=== PATIENT | male | born 1995 | race African-American/Black ===

== ENCOUNTER 2017-08-14 06:39 | Emergency (ER) | payer MEDICAID ==
[~2017-08-14] VITALS: Ht 165.1 cm; Wt 65.8 kg
[~2017-08-14 06:39] MED LIST: NKM
[2017-08-14 07:06] LABS: APPEARANCE,URINE CLEAR; BILIRUBIN, URINE NEGATIVE (NEGATIVE); GLUCOSE, URINE (UA) NEGATIVE (NEGATIVE); KETONES,URINE 1+ (NEGATIVE); LEUKOCYTE ESTERASE ,URINE 1+ (NEGATIVE); NITRITE,URINE NEGATIVE (NEGATIVE); PH,URINE 6 (4.5-8.0); PROTEIN,URINE 2+ (NEGATIVE); UROBILINOGEN,URINE 4 MG/DL (0.0-1.0)
[2017-08-14 07:13] LABS: BASOPHILS % (AUTO) 1.4 % (0.0-2.0); EOSINOPHILS % (AUTO) 0.8 % (0.0-3.0); HEMOGLOBIN 15.7 G/DL (14.2-18.0); LYMPHOCYTES % (AUTO) 19.7 % (20.0-45.0); MEAN CORPUSCULAR VOLUME 95 FL (80-99); MONOCYTES % (AUTO) 11.1 % (1.0-10.0); PLATELET COUNT 308 K/UL (150-450); RED BLOOD COUNT 5.04 M/UL (4.70-6.10); WHITE BLOOD COUNT 13.2 K/UL (4.8-10.8)
--- NOTE | 2017-08-14 07:13 | Emergency Room Report ---
History of Present Illness General Chief Complaint: Abdominal Pain Source: Patient Present Illness HPI 21-year-old male with no sig pmhx p/w abdominal pain 2 days. Patient states pain started gradually, localized to epigastric and right upper abdomen, non radiating, sharp/burning in nature, intermittent. No relieving or exacerbating factors. Reports some nausea but no vomiting or diarrhea. Patient has otherwise been eat and drinking. No increased pain with eating Denies fever, chills. No hx of abdominal surgeries. No hx of endoscopies/colonoscopies.. States that he was told that he has gallstones in the past Allergies: Coded Allergies: No Known Allergies (Unverified , 08/14/17) Patient History Past Medical History: see triage record Past Surgical History: none Pertinent Family History: none Reviewed Nursing Documentation: PMH: Agreed, PSxH: Agreed Nursing Documentation-PMH Past Medical History: No History, Except For Hx Gastrointestinal Problems: Yes - gallstones Review of Systems All Other Systems: negative except mentioned in HPI Physical Exam Vital Signs Date Time Temp Pulse Resp B/P (MAP) Pulse Ox O2 Delivery O2 Flow Rate FiO2 08/14/17 06:44 98.8 86 16 147/93 99 Room Air Sp02 EP Interpretation: reviewed, normal General Appearance: normal inspection, well appearing, no apparent distress, alert, GCS 15, non-toxic Head: normocephalic, atraumatic Eyes: bilateral eye normal inspection, bilateral eye PERRL, bilateral eye EOMI ENT: normal ENT inspection, normal pharynx, normal voice, moist mucus membranes Neck: normal inspection, full range of motion, supple Respiratory: normal inspection, lungs clear, normal breath sounds, no respiratory distress, no retraction, no wheezing, speaking full sentences, chest symmetrical Cardiovascular #1: normal inspection, regular rate, rhythm, no edema, normal capillary refill Cardiovascular #2: 2+ radial (R), 2+ radial (L) Gastrointestinal: other - Nontender abdomen throughout with the exception of very mild epigastric tenderness. No break quadrant tenderness. Garcia's sign is negative. No guarding no rigidity Genitourinary: no CVA tenderness Musculoskeletal: normal inspection, back normal, normal range of motion, non- tender Neurologic: normal inspection, alert, oriented x3, responsive, motor strength/ tone normal, sensory intact, normal gait, speech normal Psychiatric: normal inspection, judgement/insight normal, memory normal Skin: normal inspection, normal color, no rash, warm/dry, well hydrated, normal turgor Medical Decision Making Diagnostic Impression: Primary Impression: Abdominal pain ER Course 21-year-old male with abdominal pain Differential Diagnosis: Gastritis, gastroenteritis, cholecystitis, biliary colic, appendicitis, diverticulitis, SBO, mesenteric ischemia, cardiac, UTI/pyelo At this time abdomen is soft nontender with the exception of very mild epigastric tenderness, will hold CT for now. Plan: Basic labs, ua, ekg Pepcid, maalox, pain control, IVF RUQ sono ER course: Right upper quadrant sonogram performed by me: No gallbladder wall thickening, no stones, no sludge, no pericholecystic fluid, no CBT dilation, sonographic Garcia's is negative Patient has remained stable during ED stay. Pain improved. Repeat abdominal exam is nontender. Tolerating PO Disposition: Patient is to be discharged to home. Prescriptions given are Pepcid Patient is instructed to follow up with their primary care doctor within 5 days. Strict return precautions discussed with patient such as fever, chills, worsening/severe abdominal pain, nausea, vomiting, black or bloody stools, which may indicate severe illness. Patient verbalizes understanding and agrees with plan. Please note that this Emergency Department Report was dictated using [employer] pathology teacher technology software, occasionally this can lead to erroneous entry secondary to interpretation by the dictation equipment Laboratory Tests Test 08/14/17 06:51 08/14/17 07:00 Urine Color Yellow Urine Appearance Clear Urine pH 6 (4.5-8.0) Urine Specific [place] 1.025 (1.005-1.035) Urine Protein 2+ (NEGATIVE) H Urine Glucose (UA) Negative (NEGATIVE) Urine Ketones 1+ (NEGATIVE) H Urine Occult Blood 1+ (NEGATIVE) H Urine Nitrite Negative (NEGATIVE) Urine Bilirubin Negative (NEGATIVE) Urine Urobilinogen 4 MG/DL (0.0-1.0) H Urine Leukocyte Esterase 1+ (NEGATIVE) H Urine RBC 2-4 /HPF (0 - 0) H Urine WBC 2-4 /HPF (0 - 0) Urine Squamous Epithelial Cells Occasional /LPF Urine Bacteria Occasional /HPF (NONE) Urine Mucus Few /LPF (NONE/OCC) H White Blood Count 13.2 K/UL (4.8-10.8) H Red Blood Count 5.04 M/UL (4.70-6.10) Hemoglobin 15.7 G/DL (14.2-18.0) Hematocrit 48.0 % (42.0-52.0) Mean Corpuscular Volume 95 FL (80-99) Mean Corpuscular Hemoglobin 31.2 PG (27.0-31.0) H Mean Corpuscular Hemoglobin Concent 32.7 G/DL (32.0-36.0) Red Cell Distribution Width 12.0 % (11.6-14.8) Platelet Count 308 K/UL (150-450) Mean Platelet Volume 6.7 FL (6.5-10.1) Neutrophils (%) (Auto) 67.0 % (45.0-75.0) Lymphocytes (%) (Auto) 19.7 % (20.0-45.0) L Monocytes (%) (Auto) 11.1 % (1.0-10.0) H Eosinophils (%) (Auto) 0.8 % (0.0-3.0) Basophils (%) (Auto) 1.4 % (0.0-2.0) Sodium Level 139 MMOL/L (136-145) Potassium Level 3.6 MMOL/L (3.5-5.1) Chloride Level 99 MMOL/L (98-107) Carbon Dioxide Level 31 MMOL/L (21-32) Anion Gap 9 mmol/L (5-15) Blood Urea Nitrogen 12 mg/dL (7-18) Creatinine 1.3 MG/DL (0.55-1.30) Estimate Glomerular Filtration Rate > 60 mL/min (>60) Glucose Level 107 MG/DL (74-106) H Calcium Level 9.4 MG/DL (8.5-10.1) Total Bilirubin 0.5 MG/DL (0.2-1.0) Aspartate Amino Transferase (AST) 17 U/L (15-37) Alanine Aminotransferase (ALT) 9 U/L (12-78) L Alkaline Phosphatase 97 U/L (46-116) Total Protein 8.5 G/DL (6.4-8.2) H Albumin 4.2 G/DL (3.4-5.0) Globulin 4.3 g/dL Albumin/Globulin Ratio 1.0 (1.0-2.7) Lipase 84 U/L (73-393) Last Vital Signs Date Time Temp Pulse Resp B/P (MAP) Pulse Ox O2 Delivery O2 Flow Rate FiO2 08/14/17 06:44 98.8 86 16 147/93 99 Room Air Disposition: HOME, SELF-CARE Condition: Improved Scripts Famotidine (PEPCID) 40 Mg Tablet 40 MG PO DAILY, #7 TAB 0 Refills Prov: Krupa Tomas M.D. 08/14/17 Patient Instructions: Abdominal Pain, Adult Krupa Tomas M.D. Aug 14, 2017 07:13
[2017-08-14 07:14] LABS: COLOR,URINE YELLOW
[2017-08-14] MEDS ORDERED: Mylanta II UD 30ml ORAL ONE (07:15)
[2017-08-14] MEDS ORDERED: Dicyclomine HCl 10mg/5ml oral soln ORAL ONE (07:15)
[2017-08-14] MEDS ORDERED: Lidocaine 2% Visc 15ml soln ORAL ONE (07:15)
[2017-08-14 07:23] LABS: ANION GAP 9 mmol/L (5-15); BLOOD UREA NITROGEN 12 mg/dL (7-18); CALCIUM 9.4 MG/DL (8.5-10.1); CARBON DIOXIDE 31 MMOL/L (21-32); CHLORIDE 99 MMOL/L (98-107); CREATININE 1.3 MG/DL (0.55-1.30); POTASSIUM 3.6 MMOL/L (3.5-5.1); SODIUM 139 MMOL/L (136-145)
[2017-08-14 07:27] LABS: ALANINE AMINOTRANSFERASE 9 U/L (12-78); ALBUMIN 4.2 G/DL (3.4-5.0); ALKALINE PHOSPHATASE 97 U/L (46-116); ASPARTATE AMINO TRANSFERASE 17 U/L (15-37); BILIRUBIN,TOTAL 0.5 MG/DL (0.2-1.0)
[2017-08-14 07:29] VITALS: BP 141/70
[2017-08-14] MEDS ORDERED: PEPCID40 MG PO (07:35)
[2017-08-14] MEDS ORDERED: LET 3ml Soln TOPIC ONE (07:45)
[2017-08-14 08:00] VITALS: BP 143/92
== END 2017-08-14 08:00 | disposition home or self-care (01) ==
LOC: EMR 07:16
DX: R10.31 Right lower quadrant pain (principal); R10.13 Epigastric pain; Z87.19 Personal history of other diseases of the digestive system
CPT/HCPCS: 36415; 80053; 81001; 83690; 85025; 96374; 96375; 99284; J2405; S0028

== ENCOUNTER 2019-07-04 13:20 | Emergency (ER) | payer MEDICAID ==
[~2019-07-04] VITALS: Ht 165.1 cm; Wt 52.2 kg
[~2019-07-04 13:20] MED LIST changes: +PEPCID40 MG PO
[2019-07-04] MEDS ORDERED: Omnipaque-300 100ml vial INJ PRN (13:45)
[2019-07-04 13:50] VITALS: BP 124/66
[2019-07-04] MEDS ORDERED: Ketorolac 30mg Inj IV ONE ×3 (14:15→17:45)
[2019-07-04 14:27] LABS: BASOPHILS % (AUTO) 1.9 % (0.0-2.0); EOSINOPHILS % (AUTO) 0.3 % (0.0-3.0); HEMATOCRIT 55.1 % (42.0-52.0); MEAN CORPUSCULAR VOLUME 89 FL (80-99); MONOCYTES % (AUTO) 14.1 % (1.0-10.0); NEUTROPHILS % (AUTO) 69.8 % (45.0-75.0); PLATELET COUNT 328 K/UL (150-450); RED BLOOD COUNT 6.16 M/UL (4.70-6.10); RED CELL DISTRIBUTION WIDTH 10.3 % (11.6-14.8); WHITE BLOOD COUNT 14.5 K/UL (4.8-10.8)
[2019-07-04 14:29] LABS: HEMOGLOBIN 18.3 G/DL (14.2-18.0)
[2019-07-04 14:37] LABS: ANION GAP 9 mmol/L (5-15); BLOOD UREA NITROGEN 39 mg/dL (7-18); CALCIUM 9.9 MG/DL (8.5-10.1); CARBON DIOXIDE 35 MMOL/L (21-32); CHLORIDE 86 MMOL/L (98-107); CREATININE 1.6 MG/DL (0.55-1.30); SODIUM 129 MMOL/L (136-145)
[2019-07-04 14:47] LABS: ALANINE AMINOTRANSFERASE 27 U/L (12-78); ALBUMIN 4.6 G/DL (3.4-5.0); ALKALINE PHOSPHATASE 100 U/L (46-116); ASPARTATE AMINO TRANSFERASE 61 U/L (15-37); BILIRUBIN,TOTAL 1.1 MG/DL (0.2-1.0)
[2019-07-04 14:49] LABS: BILIRUBIN,DIRECT 0.2 MG/DL (0.0-0.3)
[2019-07-04 14:50] LABS: INR 1.1 (0.9-1.1)
[2019-07-04 16:00] VITALS: BP 120/67
--- NOTE | 2019-07-04 16:57 | Diagnostic Imaging Report ---
Indication: Abdominal pain Technique: Spiral acquisitions obtained through the abdomen and pelvis. No oral contrast utilized, per emergency room physician request No IV contrast utilized, per referring physician request.. Multiplanar reconstructions were generated. Total dose length product 721 mGycm. CTDIvol(s) 12 mGy. Dose reduction achieved using automated exposure control Comparison: 06/19/2016 Findings: The appendix is prominent in caliber, measuring up to 1 cm diameter at the bulbous tip, less large along the shaft. There is a equivocal very slight stranding of the adjacent fat. Note, however, that appearance is largely similar to that demonstrated on the prior study except that the previously demonstrated appendicolith is no longer visualized. No evidence of colonic diverticulosis or diverticulitis. No small bowel distention. No free or loculated intraperitoneal gas or fluid is evident. The distal esophagus, stomach, duodenum are unremarkable. Lack of IV contrast limits assessment of the solid organs. The liver, gallbladder, bile ducts, pancreas, spleen, adrenals, kidneys are unremarkable. No renal or ureteral calculi, hydronephrosis, or hydroureter. No retroperitoneal or mesenteric mass or adenopathy. No pelvic mass or adenopathy. The included lung bases are clear. The bones are unremarkable. Impression: Prominent appendix with very questionable stranding of the adjacent fat. This could indicate acute appendicitis. However, given similarity in appearance of the appendix to the previous study of 2015, this could also represent baseline appearance of the patient's appendix. Correlation with clinical findings is recommended No other acute or significant abnormality demonstrated. This agrees with the preliminary interpretation provided overnight by [facility] service. The CT scanner at [facility] is accredited by the [employer] and the scans are performed using protocols designed to limit radiation exposure to as low as reasonably achievable to attain images of sufficient resolution adequate for diagnostic evaluation.
[2019-07-04] MEDS ORDERED: Capsaicin 0.075% Cream TOPIC SCH (17:00)
[2019-07-04] MEDS ORDERED: Piperacillin/Tazobactam 3.375 GM in NS 110 ML IVPB ONE (17:00)
[2019-07-04 17:03] LABS: APPEARANCE,URINE SLIGHTLY CLOUDY; BILIRUBIN, URINE NEGATIVE (NEGATIVE); COLOR,URINE PALE YELLOW; GLUCOSE, URINE (UA) NEGATIVE (NEGATIVE); KETONES,URINE 4+ (NEGATIVE); LEUKOCYTE ESTERASE ,URINE NEGATIVE (NEGATIVE); NITRITE,URINE NEGATIVE (NEGATIVE); PH,URINE 6 (4.5-8.0); PROTEIN,URINE 2+ (NEGATIVE); UROBILINOGEN,URINE NORMAL MG/DL (0.0-1.0)
--- NOTE | 2019-07-04 17:12 | Emergency Room Report ---
History of Present Illness General Chief Complaint: Abdominal Pain Source: Patient Present Illness HPI 23-year-old male with no significant past medical history here complaining of 3 days of new onset of 10 out of 10 epigastric and left upper quadrant pain that started after eating sour cream. Complains of few bouts of nonbloody emesis and nausea. Denies diarrhea constipation or blood in stool. Denies fever and chills, chest pain, shortness of breath, palpitation, urinary symptoms. Denies recent travel, tobacco smoke, alcohol intake. Patient appears in mild distress , tachycardic, otherwise vital signs are within normal limits. Has not taken medication for symptom relief. Denies past surgical history Allergies: Coded Allergies: No Known Allergies (Unverified , 08/14/17) Patient History Past Medical History: see triage record Past Surgical History: none Pertinent Family History: none Social History: Reports: drug use - marijuana Immunizations: UTD Reviewed Nursing Documentation: PMH: Agreed; PSxH: Agreed Nursing Documentation-PMH Past Medical History: No Stated History Hx Gastrointestinal Problems: Yes - gallstones Review of Systems All Other Systems: negative except mentioned in HPI Physical Exam Vital Signs Date Time Temp Pulse Resp B/P (MAP) Pulse Ox O2 Delivery O2 Flow Rate FiO2 07/04/19 13:21 98.2 116 19 127/80 (96) 98 Room Air 07/04/19 13:50 98 Sp02 EP Interpretation: reviewed, abnormal - elevated HR General Appearance: no apparent distress, alert, GCS 15, non-toxic Head: normocephalic, atraumatic Eyes: bilateral eye normal inspection, bilateral eye PERRL ENT: hearing grossly normal, normal pharynx, no angioedema, normal voice Neck: full range of motion, supple, supple/symm/no masses Respiratory: chest non-tender, lungs clear, normal breath sounds, no rhonchi, no retraction, no wheezing, speaking full sentences Cardiovascular #1: regular rate, rhythm, no edema, no murmur Gastrointestinal: no mass, no organomegaly, no peritonitis, no bruit, non- distended, no guarding, no hernia, no pulsatile mass, no rebound Rectal: deferred Genitourinary: no CVA tenderness Musculoskeletal: back normal, normal range of motion, digits/nails normal, no calf tenderness Neurologic: alert, motor strength/tone normal, oriented x3, sensory intact, responsive, speech normal Psychiatric: judgement/insight normal, memory normal, mood/affect normal, no suicidal/homicidal ideation Skin: no rash Lymphatic: no adenopathy Medical Decision Making PA Attestation All my diagnosis and treatment plans were reviewed ad discussed with my supervising physician Dr. Vann Diagnostic Impression: Primary Impression: Intractable abdominal pain Additional Impressions: Dehydration Left against medical advice ER Course 23-year-old male with no significant past medical history here complaining of 3 days of new onset of 10 out of 10 epigastric and left upper quadrant pain that started after eating sour cream. Complains of few bouts of nonbloody emesis and nausea. Denies diarrhea constipation or blood in stool. Denies fever and chills, chest pain, shortness of breath, palpitation, urinary symptoms. Denies recent travel, tobacco smoke, alcohol intake. Patient appears in mild distress , tachycardic, otherwise vital signs are within normal limits. Has not taken medication for symptom relief. Denies past surgical history Ddx considered but are not limited to: appendicitis, cholecystis, gastritis, gastroenteritis, UTI, pyelonephritis, SBO, diverticulitis, influenza with GI manifestation, IN, Vital signs: are WNL, pt. is afebrile H&PE are most consistent with: Intractable abdominal pain, dehydration ORDERS: abdominal CT, abdominal pain set, EKG, chest x-ray, ED INTERVENTIONS: NS bolus, Zofran, Pepcid, Toradol, Zosyn. Patient was admitted with diagnosis of abdominal pain possible appendicitis and intractable abdominal pain plus dehydration to Dr. Kelly under supervision of : Edwar Patient decided to leave AGAINST MEDICAL ADVICE after capsicin topical cream was applied in large quantities wrongfully by patient's nurse and applied to all over his abdomen. Patient started feeling burning sensation in the abdomen and had to be cooled down with ice and petroleum jelly. Patient decided to leave AGAINST MEDICAL ADVICE as he did not want to be admitted to this hospital. Patient stable at time of discharge and understand the risk of leaving with a possible appendicitis risk of perforation and need for immediate surgery. EKG Diagnostic Results Rate: normal Rhythm: NSR ST Segments: no acute changes Other Impression no acute ST changes Chest X-Ray Diagnostic Results Chest X-Ray Diagnostic Results : Chest X-Ray Ordered: Yes # of Views/Limited/Complete: 1 View Indication: Other EP Interpretation: Yes PA Xray: Interpretation reviewed, by supervising MD, and agrees with findings. Interpretation: no consolidation, no effusion, no pneumothorax Impression: No acute disease Electronically Signed by: Wilfredo Maurer PA-C CT/MRI/US Diagnostic Results CT/MRI/US Diagnostic Results : Imaging Test Ordered: abd CT w/o contrast Impression The distal appendix measures up to 1 cm with mild adjacent stranding for example coronal 36 and axial 78 may represent changes of early appendicitis, clinically correlate No appendicolith present No bowel dilation, free air or free fluid Lung bases are clear Abdominal solid organs, gallbladder and abdominal aorta appear within limits on noncontrast imaging Last Vital Signs Date Time Temp Pulse Resp B/P (MAP) Pulse Ox O2 Delivery O2 Flow Rate FiO2 07/04/19 13:50 98 20 Room Air 98 07/04/19 13:50 98.2 124/66 98 Disposition: ADMITTED INPATIENT Condition: Serious Referrals: NON PHYSICIAN (PCP) Wilfredo Starr Jul 04, 2019 17:12
[2019-07-04] MEDS ORDERED: Dextrose 10% 1,000 ML IV SCH (17:30)
[2019-07-04 18:00] VITALS: BP 110/68
[2019-07-04 18:40] VITALS: BP 125/79
--- NOTE | 2019-07-05 10:37 | Diagnostic Imaging Report ---
Indication: Chest pain Technique: One view of the chest Comparison: none Findings: Lungs and pleural spaces are clear. Heart size is normal. Impression: No acute process
== END 2019-07-04 18:40 ==
LOC: EMR 13:45 → CANBEDREQ 18:59
DX: R10.13 Epigastric pain (principal); E86.0 Dehydration; R11.2 Nausea with vomiting, unspecified
CPT/HCPCS: 36415; 71045; 74176; 80053; 80307; 81003; 82248; 83690; 84484; 85025; 85610; 85730; 86850; 86900; 86901; 87086; 93005; 96361; 96365; 96375; 96376; G0480; J1885; J2405; J2543; J7030; Z7502; 99284; J8499